=== PATIENT | male | born 1950 | race Caucasian/White ===

== ENCOUNTER 2021-01-16 05:59 | Emergency (ER) | payer OTHER ==
[~2021-01-16] VITALS: Ht 177.8 cm; Wt 68.0 kg
[2021-01-16] MEDS ORDERED: LIPITOR20 MG (06:24)
[2021-01-16] MEDS ORDERED: LANTUS SOL100 UNIT/1 (06:25)
[2021-01-16] MEDS ORDERED: SYNTHROID100 MCG (06:25)
[2021-01-16] MEDS ORDERED: ATORVASTATIN CA10 MG (06:25)
[2021-01-16] MEDS ORDERED: JANUMET 50-1,01 EACH (06:25)
[2021-01-16] MEDS ORDERED: HUMALOG100 UNIT/1 (06:25)
[2021-01-16] MEDS ORDERED: ZOLOFT50 MG (06:26)
[2021-01-16] MEDS ORDERED: ALDACTONE25 MG (06:26)
[2021-01-16] MEDS ORDERED: KRISTALOSE10 GM (06:26)
[2021-01-16] MEDS ORDERED: AVAPRO300 MG (06:26)
[2021-01-16] MEDS ORDERED: WELLBUTRIN XL150 M1 (06:26)
== END 2021-01-16 12:15 | disposition home or self-care (01) ==
LOC: ER 05:59
DX: G45.9 Transient cerebral ischemic attack, unspecified (principal); E11.65 Type 2 diabetes mellitus with hyperglycemia; R41.0 Disorientation, unspecified; R53.1 Weakness; C22.7 Other specified carcinomas of liver